=== PATIENT | female | born 1985 | race African-American/Black ===

== ENCOUNTER 2018-07-12 20:04 | Emergency (ER) | payer SELFPAY ==
[~2018-07-12] VITALS: Ht 162.6 cm; Wt 90.9 kg
[2018-07-12 20:09] VITALS: Ht 162.6 cm; Wt 90.9 kg
[2018-07-12 21:58] VITALS: BP 137/65
== END 2018-07-12 21:58 | disposition home or self-care (01) ==
LOC: D.ER 20:04
DX: G43.909 Migraine, unspecified, not intractable, without status migrainosus (principal); F17.200 Nicotine dependence, unspecified, uncomplicated

== ENCOUNTER 2018-08-06 04:56 | Emergency (ER) | payer SELFPAY ==
[~2018-08-06] VITALS: Ht 162.6 cm; Wt 90.9 kg
[2018-08-06 05:03] VITALS: Ht 162.6 cm; Wt 90.9 kg
[2018-08-06] MEDS ORDERED: AMOXICILLIN500 M1 PO (05:25)
[2018-08-06] MEDS ORDERED: ULTRAM50 MG PO (05:25)
[2018-08-06 05:48] VITALS: BP 132/87
== END 2018-08-06 05:51 | disposition home or self-care (01) ==
LOC: D.ER 04:56
DX: K08.89 Other specified disorders of teeth and supporting structures (principal); S02.5XXA Fracture of tooth (traumatic), initial encounter for closed fracture; X58.XXXA Exposure to other specified factors, initial encounter; Y93.89 Activity, other specified; Y92.89 Other specified places as the place of occurrence of the external cause; F17.200 Nicotine dependence, unspecified, uncomplicated

== ENCOUNTER 2018-08-13 22:22 | Emergency (ER) | payer SELFPAY ==
[~2018-08-13] VITALS: Ht 162.6 cm; Wt 90.9 kg
[~2018-08-13 22:22] MED LIST: AMOXICILLIN500 M1 PO; ULTRAM50 MG PO
[2018-08-13 22:28] VITALS: Ht 162.6 cm; Wt 90.9 kg
[2018-08-13] MEDS ORDERED: CYCLOBENZAPRINE10 MG PO (23:20)
[2018-08-13] MEDS ORDERED: IBUPROFEN800 MG PO (23:21)
[2018-08-13] MEDS ORDERED: ACETAMINOPHEN500 M1 PO (23:21)
[2018-08-13 23:56] VITALS: BP 130/70
== END 2018-08-13 23:57 | disposition home or self-care (01) ==
LOC: D.ER 22:22
DX: S93.402A Sprain of unspecified ligament of left ankle, initial encounter (principal); X50.1XXA Overexertion from prolonged static or awkward postures, initial encounter; Y93.89 Activity, other specified; Y92.019 Unspecified place in single-family (private) house as the place of occurrence of the external cause

== ENCOUNTER 2018-10-09 07:20 | Emergency (ER) | payer SELFPAY ==
[~2018-10-09] VITALS: Ht 162.6 cm; Wt 100.0 kg
[~2018-10-09 07:20] MED LIST changes: +ACETAMINOPHEN500 M1 PO; +CYCLOBENZAPRINE10 MG PO; +IBUPROFEN800 MG PO
[2018-10-09 07:30] VITALS: Ht 162.6 cm; Wt 100.0 kg
[2018-10-09] MEDS ORDERED: BLEPH-105 ML EACH EYE (07:51)
[2018-10-09 07:58] VITALS: BP 138/83
== END 2018-10-09 07:59 | disposition home or self-care (01) ==
LOC: D.ER 07:20
DX: H10.31 Unspecified acute conjunctivitis, right eye (principal); F17.200 Nicotine dependence, unspecified, uncomplicated

== ENCOUNTER 2018-11-14 04:29 | Emergency (ER) | payer SELFPAY ==
[~2018-11-14] VITALS: Ht 162.6 cm; Wt 98.2 kg
[~2018-11-14 04:29] MED LIST changes: +BLEPH-105 ML EACH EYE
[2018-11-14 04:33] VITALS: Ht 162.6 cm; Wt 98.2 kg
[2018-11-14] MEDS ORDERED: TAMIFLU75 MG PO (04:51)
[2018-11-14] MEDS ORDERED: ZITHROMAX TRI-500 MG PO (04:51)
[2018-11-14 05:18] VITALS: BP 118/79
== END 2018-11-14 05:18 | disposition home or self-care (01) ==
LOC: D.ER 04:29
DX: J06.9 Acute upper respiratory infection, unspecified (principal); R50.9 Fever, unspecified

== ENCOUNTER 2019-01-20 21:58 | Emergency (ER) | payer SELFPAY ==
[~2019-01-20] VITALS: Ht 162.6 cm; Wt 93.6 kg
[~2019-01-20 21:58] MED LIST changes: +TAMIFLU75 MG PO; +ZITHROMAX TRI-500 MG PO
[2019-01-20 22:01] VITALS: Ht 162.6 cm; Wt 93.6 kg
[2019-01-20 22:38] LABS: BASOPHILS 0.1 % (0-2); EOSINOPHILS 0.7 % (0-7); HEMATOCRIT 30.6 % (36.0-48.0); HEMOGLOBIN 9.8 g/dL (12-16); IMMATURE GRANULOCYTES 0.1 % (0-5); LYMPHOCYTES 26.9 % (15-50); MCH 23.9 pg (26.0-34.0); MCV 74.6 fL (80.0-100.0); MEAN PLATELET VOLUME 9.6 fL (7.4-10.4); MONOCYTES 5.5 % (2-11); NEUTROPHILS 66.7 % (40-80); PLATELET COUNT 252 10x3/uL (130-400); RDW 17.1 % (11.5-14.5); WBC 8.5 10x3/uL (4.8-10.8)
[2019-01-20 22:47] LABS: APTT 25.5 SECONDS (22.8-39.4); INR 0.99 (0.85-1.17); PROTIME 12.6 SECONDS (11.6-15.0)
[2019-01-20 22:51] LABS: ALKALINE PHOSPHATASE 69 U/L (46-116); ALT (SGPT) 16 U/L (10-68); BILIRUBIN - TOTAL 0.22 mg/dL (0.2-1.3); CALC OSMOLALITY 280 mosm/kg (275-300); CALCIUM 8.6 mg/dL (8.5-10.1); CARBON DIOXIDE 24.5 mmol/L (21.0-32.0); CHLORIDE - SERUM 106 mmol/L (98-107); CREATININE - SERUM 0.7 mg/dL (0.6-1.3); GLUCOSE 96 mg/dL (74-106); POTASSIUM - SERUM 3.4 mmol/L (3.5-5.1); PROTEIN - SERUM 6.5 g/dL (6.4-8.2); SODIUM 142 mmol/L (136-145); UREA NITROGEN 8 mg/dL (7-18); eGFR NON AFRICAN AMERICAN > 90 mL/min (90-120)
[2019-01-20 23:06] LABS: CKMB 0.5 U/L (0.0-3.6); CREATINE KINASE 163 UL (21-215); PRO BNP 52 pg/mL (0-125)
[2019-01-20] MEDS ORDERED: ALBUTEROL SULF8.5 GM INH (23:09)
[2019-01-20] MEDS ORDERED: VIBRAMYCIN 100100 MG PO (23:09)
[2019-01-20 23:10] LABS: TROPONIN-I < 0.017 ng/mL (0.000-0.060)
[2019-01-21 02:19] VITALS: BP 130/84
== END 2019-01-21 00:38 | disposition home or self-care (01) ==
LOC: D.ER 21:58
PROVIDERS: Family Medicine
DX: F41.0 Panic disorder [episodic paroxysmal anxiety] (principal); D64.9 Anemia, unspecified; J40 Bronchitis, not specified as acute or chronic; S50.01XA Contusion of right elbow, initial encounter; X58.XXXA Exposure to other specified factors, initial encounter; Y93.89 Activity, other specified; Y92.89 Other specified places as the place of occurrence of the external cause; N92.0 Excessive and frequent menstruation with regular cycle

== ENCOUNTER 2019-08-15 07:15 | Emergency (ER) | payer MEDICAID ==
[~2019-08-15] VITALS: Ht 162.6 cm; Wt 84.1 kg
[~2019-08-15 07:15] MED LIST changes: +ALBUTEROL SULF8.5 GM INH; +VIBRAMYCIN 100100 MG PO
[2019-08-15 07:23] VITALS: Ht 162.6 cm; Wt 84.1 kg
[2019-08-15] MEDS ORDERED: HYDROCODON-ACE1 EAC2 PO (08:43)
[2019-08-15 09:05] VITALS: BP 130/82
== END 2019-08-15 09:05 | disposition home or self-care (01) ==
LOC: D.ER 07:15
DX: S99.912A Unspecified injury of left ankle, initial encounter (principal); W19.XXXA Unspecified fall, initial encounter; Y93.9 Activity, unspecified; Y92.9 Unspecified place or not applicable

== ENCOUNTER 2021-01-10 03:36 | Emergency (ER) | payer BC ==
[~2021-01-10] VITALS: Ht 162.6 cm; Wt 86.2 kg
[~2021-01-10 03:36] MED LIST changes: +DICLOFENAC SODI50 MG PO; +HYDROCODON-ACE1 EAC2 PO; +HYDROCODON-ACE1 EAC7 PO; +KEFLEX500 MG PO
[2021-01-10 03:43] VITALS: Ht 162.6 cm; Wt 86.2 kg
[2021-01-10 04:35] LABS: BASOPHILS 0.4 % (0-2); CALC OSMOLALITY 279 mosm/kg (275-300); CALCIUM 8.3 mg/dL (8.5-10.1); CARBON DIOXIDE 24.7 mmol/L (21.0-32.0); CHLORIDE - SERUM 106 mmol/L (98-107); CREATININE - SERUM 0.8 mg/dL (0.6-1.3); EOSINOPHILS 3.1 % (0-7); GLUCOSE 111 mg/dL (74-106); HEMATOCRIT 29.3 % (36.0-48.0); HEMOGLOBIN 8.6 g/dL (12-16); IMMATURE GRANULOCYTES 0.1 % (0-5); LYMPHOCYTE ABS# 1.64 10x3/uL (1.18-3.74); LYMPHOCYTES 17.9 % (15-50); MCH 19.3 pg (26.0-34.0); MCHC 29.4 g/dL (31.0-37.0); MCV 65.8 fL (80.0-100.0); MONOCYTES 8.2 % (2-11); NEUTROPHIL ABS# 6.43 10x3/uL (1.56-6.13); NEUTROPHILS 70.3 % (40-80); PLATELET COUNT 194 10x3/uL (130-400); POTASSIUM - SERUM 3.2 mmol/L (3.5-5.1); RBC 4.45 10x6/uL (4.00-5.40); RDW 19.2 % (11.5-14.5); SODIUM 141 mmol/L (136-145); UREA NITROGEN 7 mg/dL (7-18); WBC 9.2 10x3/uL (4.8-10.8); eGFR NON AFRICAN AMERICAN 87 mL/min (90-120)
[2021-01-10 04:39] LABS: APTT 29.5 SECONDS (22.8-39.4); INR 1.11 (0.85-1.17); PROTIME 13.2 SECONDS (11.6-15.0)
[2021-01-10 04:41] LABS: D-DIMER-QUANTITATIVE 0.36 ug/mLFEU (0.20-0.54)
[2021-01-10 04:48] LABS: ALBUMIN 3.4 g/dL (3.4-5.0); ALKALINE PHOSPHATASE 84 U/L (30-120); ALT (SGPT) 19 U/L (10-68); BILIRUBIN - TOTAL 0.25 mg/dL (0.2-1.3); PRO BNP 137 pg/mL (0-125); PROTEIN - SERUM 7.3 g/dL (6.4-8.2)
[2021-01-10 04:49] LABS: TROPONIN-I < 0.017 ng/mL (0.000-0.060)
[2021-01-10] MEDS ORDERED: VENTOLIN HFA [SP8 GM INH (05:48)
[2021-01-10] MEDS ORDERED: DOXYCYCLINE HY100 M2 PO (05:48)
[2021-01-10 05:52] LABS: INFLUENZA TYPE A NEGATIVE (NEGATIVE); INFLUENZA TYPE B NEGATIVE (NEGATIVE); SARS-CoV-2 ANTIGEN NEGATIVE- SARS-COV-2 (NEGATIVE)
[2021-01-10 05:59] LABS: HCG URINE NEGATIVE (NEGATIVE)
[2021-01-10 06:07] LABS: UDS - AMPHET NEGATIVE QUAL (NEGATIVE); UDS - BARB NEGATIVE QUAL (NEGATIVE); UDS - BENZO NEGATIVE QUAL (NEGATIVE); UDS - COCAINE NEGATIVE QUAL (NEGATIVE); UDS - OPIATE NEGATIVE QUAL (NEGATIVE); UDS - PCP NEGATIVE QUAL (NEGATIVE); UDS - THC POSITIVE QUAL (NEGATIVE)
[2021-01-10 06:21] LABS: BILIRUBIN NEGATIVE (NEGATIVE); KETONE NEGATIVE (NEGATIVE); NITRITE NEGATIVE (NEGATIVE); UROBILINOGEN NORMAL mg/dL (< 2)
[2021-01-10 06:22] LABS: BACTERIA FEW HPF (NONE SEEN); SQUAMOUS EPITHELIAL 0-5 HPF (0-4); WHITE CELLS - URINE 0-5 HPF (0-4)
[2021-01-10 06:36] VITALS: BP 140/88
== END 2021-01-10 06:37 | disposition home or self-care (01) ==
LOC: D.ER 03:36
PROVIDERS: Family Medicine
DX: R06.02 Shortness of breath (principal); J20.9 Acute bronchitis, unspecified; D64.9 Anemia, unspecified; E87.6 Hypokalemia